=== PATIENT | female | born 1980 | race African-American/Black ===

== ENCOUNTER 2021-07-07 22:23 | Inpatient (IN) | payer OTHER ==
[~2021-07-07] VITALS: Ht 160 cm; Wt 63.5 kg
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
[~2021-07-07 22:23] MED LIST: BICARSIM80 MG PO; IBUPROFEN 800800 M1 PO; IRON325 PO; NORCO 5-325 TA1 EACH PO; SENOKOT-S1 TA1 PO; TYLENOL325 MG PO
[2021-07-07 22:24] VITALS: BP 131/63
[2021-07-07] MEDS ORDERED: NOHOMEMEDICATIONS (22:33)
[2021-07-07 23:25] LABS: ABSOLUTE NEUTROPHILS 6.3 thou/uL (1.4-8.2); BASOPHILS 0.5 % (0.0-2.0); CALCIUM 8.4 mg/dL (8.5-10.1); CREATININE 0.9 mg/dL (0.6-1.0); EOSINOPHILS 0.5 % (0.0-3.0); HEMATOCRIT 36.8 % (37.0-47.0); HEMOGLOBIN 11.8 gm/dL (12.0-15.0); MCH 29.7 pg (26.0-34.0); MCV 92.5 fL (80.0-100.0); MONOCYTES 7.3 % (1.0-8.0); PLATELET COUNT 306 thou/uL (150-400); POLYS 63.7 % (36.0-66.0); POTASSIUM 4.1 mmol/L (3.5-5.1); RBC 3.98 mil/uL (4.20-5.00); RDW 14.4 % (10.5-14.5); WBC 9.9 thou/uL (4.0-11.0)
[2021-07-07 23:32] LABS: ALBUMIN 3.9 g/dL (3.4-5.0); TOTAL BILIRUBIN 0.4 mg/dL (0.2-1.0); TOTAL PROTEIN 7.4 g/dL (6.4-8.2)
[2021-07-08 05:21] VITALS: BP 144/66
[2021-07-08 06:14] VITALS: BP 144/66
[2021-07-08 06:42] VITALS: BP 149/74
[2021-07-08 07:20] VITALS: BP 145/83
--- NOTE | 2021-07-08 07:32 | NUR ---
PT ARRIVED UNIT FROM ER AT 0630.PT V/S STABLE AND PAIN MEDS ADMINISTERED PRN FOR PAIN MANAGEMENT.WILL ENDORSE TO DAY NURSE
--- NOTE | 2021-07-08 09:32 | EKG ---
[address] [address] ELECTROCARDIOGRAM REPORT Name: BELEM BRANCH Room #: 456- ADM IN M.R.#: [id number] Admission: 07/08/21 Attend Phys: Silvino Jo, Discharge: Date of : 80 Report #: [id number] [facility] ED Test Date: 2021-07-07 Test Time: 23:08:03 Pat Name: BELEM BRANCH Department: Room: 456 Gender: F [place] Lead: WARRNE : 1980 Requested By: Ramiro Man Order Number: [id number] MD: Jean Meyer Measurements Intervals [place] Rate: 82 P: 65 CT: 175 QRS: -1 QRSD: 98 T: 53 QT: 392 QTc: 458 Interpretive Statements Sinus rhythm Anteroseptal infarct, age indeterminate Baseline wander in lead(s) V4,V5,V6 No previous ECG available for comparison Electronically Signed On 07-08-2021 9:31:59 CDT by Jean Meyer [email or web address] <ELECTRONICALLY SIGNED> By: Jean Meyer MD, [facility] [address] 07 07 Jean Meyer MD, [facility] /EPI
--- NOTE | 2021-07-08 15:08 | NUR ---
ASSUMED PT CARE AROUND 0715, PT CAME TO FLOOR AROUND 0630. ADM HIST, ADM EDU AND ADM ASSESMENTS COMPLETED. ON REGULAR DIET. A X O X4. ON ROOM AIR. 1 X PERSON ASST. PAIN LEFT RIBS, PARTIALLY CONTROLLED BY PAIN MEDS. NO OPEN WOUNDS. FAMILY IN THE ROOM AROUND NOON. FALL PRECT IN PLACE, CALL LIGHT IN REACH, WILL CALL APPROP. WILL CONTINUE TO MONITOR.
[2021-07-08 20:12] VITALS: BP 132/63
--- NOTE | 2021-07-09 02:19 | NUR ---
PT CARE ASSUMED AT 1900 WITH FAMILY AT BEDSIDE.PT IS A/O X4.PT IS UP WITH X1 ASSIST AND C/O PAIN ON LT RIBS AND ABD ESPECIALLY WITH MOVEMENT.PAIN MANAGED WITH MORPHINE AND NORCO WITH PARTIAL RELIEF.FALL PRECAUTION IN PLACE.NICOTINE PATCH ORDERED AND ADMINISTERED.PT ON REGULAR DIET.WILL CONTINUE TO MONITOR PER POC
[2021-07-09] MEDS ORDERED: HYDROCODON-ACE1 EAC7 PO (14:47)
[2021-07-09] MEDS ORDERED: MIRALAX119 GM PO (14:47)
[2021-07-09] MEDS ORDERED: COLACE100 MG PO (14:48)
[2021-07-09 15:04] VITALS: BP 132/63
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
--- NOTE | 2021-07-09 15:46 | NUR ---
Pt A/O x 4, pain in ribs and abdomen mostly controlled by PO pain medication. Discharge teaching Re: activity and medications given. Rx for pain medication sent to preferred pharmacyt, activity restriction note/work note given to patient. PIV removed, friend at bedside helping her dress. Will wheel downstairs when finished.
[2021-07-09 16:54] VITALS: BP 132/63
== END 2021-07-09 16:30 | disposition home or self-care (01) | DRG 185 ==
LOC: ER 22:23 → EROBS 07-08 02:16 → 4W 07-08 06:41
PROVIDERS: Emergency Medicine; ADMIT Surgery; ATTEND Surgery
DX: S22.42XA Multiple fractures of ribs, left side, initial encounter for closed fracture (principal); F12.90 Cannabis use, unspecified, uncomplicated; F17.210 Nicotine dependence, cigarettes, uncomplicated; F14.90 Cocaine use, unspecified, uncomplicated; S39.91XA Unspecified injury of abdomen, initial encounter; Z86.16 Personal history of COVID-19; V89.2XXA Person injured in unspecified motor-vehicle accident, traffic, initial encounter; Y93.89 Activity, other specified; Y92.89 Other specified places as the place of occurrence of the external cause; Y99.8 Other external cause status; Z20.822 Contact with and (suspected) exposure to COVID-19
CPT/HCPCS: 10047

== ENCOUNTER 2021-07-12 19:08 | Inpatient (IN) | payer OTHER ==
[~2021-07-12] VITALS: Ht 160 cm; Wt 61.7 kg
[~2021-07-12 19:08] MED LIST changes: +COLACE100 MG PO; +HYDROCODON-ACE1 EAC7 PO; +MIRALAX119 GM PO; +NOHOMEMEDICATIONS
[2021-07-12 19:27] VITALS: BP 122/60
[2021-07-12 21:04] LABS: URINE BILIRUBIN 1+ (Negative); URINE BLOOD 2+ (Negative); URINE CLARITY CLEAR; URINE COLOR YELLOW; URINE GLUCOSE-RANDOM* NEGATIVE (Negative); URINE KETONES TRACE (Negative); URINE LEUKOCYTES-REFLEX TRACE (Negative); URINE NITRITE-REFLEX NEGATIVE (Negative); URINE PROTEIN (DIPSTICK) TRACE (Negative)
[2021-07-12 21:05] LABS: ICTOTEST (BILI CONFIRMATORY) Negative (Negative)
[2021-07-12 21:16] LABS: HEMATOCRIT 35.3 % (37.0-47.0); HEMOGLOBIN 11.6 gm/dL (12.0-15.0); MCH 30.3 pg (26.0-34.0); MCHC 32.9 g/dL (28.0-37.0); PLATELET COUNT 262 thou/uL (150-400); RBC 3.84 mil/uL (4.20-5.00); RDW 14.7 % (10.5-14.5)
[2021-07-12 21:22] LABS: CREATININE 0.9 mg/dL (0.6-1.0); POTASSIUM 3.8 mmol/L (3.5-5.1)
[2021-07-12 21:25] LABS: BACTERIA-REFLEX 1-9 Few /HPF (None Seen); CASTS None Seen /LPF (None Seen); CRYSTALS None Seen /LPF (None Seen); MUCUS 4-6 Moderate strn/LPF (None Seen); SQUAMOUS 4-10 Moderate /LPF (0-3); URINE RBC 3-10 Few /HPF (NONE SEEN); URINE WBC-REFLEX 0-5 Rare /HPF (0-5)
[2021-07-12 21:28] LABS: ALBUMIN 3.5 g/dL (3.4-5.0); TOTAL BILIRUBIN 0.7 mg/dL (0.2-1.0); TOTAL PROTEIN 7.6 g/dL (6.4-8.2)
[2021-07-12 22:27] LABS: ANISOCYTOSIS 1+; PLATELET ESTIMATE NORMAL; POIKILOCYTOSIS 1+
[2021-07-13 02:37] VITALS: BP 180/80
[2021-07-13 02:41] VITALS: BP 180/80
[2021-07-13 03:13] VITALS: BP 142/105
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
--- NOTE | 2021-07-13 08:08 | NUR ---
I CONCUR WITH THE ASSESSMENT AND NOTE OF HAWA SINCLAIR
[2021-07-13 08:38] VITALS: BP 150/94
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
[2021-07-13 14:51] LABS: MCH 30.1 pg (26.0-34.0); MCHC 32.3 g/dL (28.0-37.0); MCV 93.2 fL (80.0-100.0); RBC 3.65 mil/uL (4.20-5.00); RDW 14.6 % (10.5-14.5); WBC 21.5 thou/uL (4.0-11.0)
[2021-07-13 15:03] LABS: CALCIUM 8.7 mg/dL (8.5-10.1); CREATININE 0.7 mg/dL (0.6-1.0); POTASSIUM 3.7 mmol/L (3.5-5.1)
--- NOTE | 2021-07-13 15:36 | NUR ---
A/O X 4. AD KARI. ROOM AIR. LEFT FOREARM PIV WITH NS @ 126 MLS/HR. LEFT FOREARM NICOTINE PATCH PLACED. SHE IS REG DIET NOW. 2 BM. TOLERATING IV ABTS WELL, NO ADVERSE EFFECTS NOTED. ABD AND LEFT RIB PAIN 8/10 MORPINE GIVEN FOR PAIN.
[2021-07-13 16:07] VITALS: BP 149/95
--- NOTE | 2021-07-14 02:28 | NUR ---
ASSUMED CARE OF PT AT 1930. REPORT RECIEVED. PETER ASSESSMENT COMPLETE. PT C/O RUQ TO BOTTOM OF XIPOID PROCESS PAIN, TENDERNESS UPON PALPATION. PAIN MEDS GIVEN ORDERED C OTHER SCHEDULED MEDS. IV ANTIBITOICS AND FLUIDS INFUSING ORDERED. L AC PIV CDI, PATENT. PT UP AD KARI TO BATHROOM. ICE WATER REFILLESD. HOURLY ROUNDING ONGOING. ALL NEEDS MET. CALL LIGHT IN REACH
[2021-07-14 06:33] LABS: HEMATOCRIT 32.1 % (37.0-47.0); HEMOGLOBIN 10.6 gm/dL (12.0-15.0); MCH 30.5 pg (26.0-34.0); MCV 92.5 fL (80.0-100.0); RBC 3.47 mil/uL (4.20-5.00); RDW 14.5 % (10.5-14.5); WBC 13.9 thou/uL (4.0-11.0)
[2021-07-14 07:02] LABS: CALCIUM 8.8 mg/dL (8.5-10.1); CREATININE 0.7 mg/dL (0.6-1.0); POTASSIUM 3.4 mmol/L (3.5-5.1)
[2021-07-14 07:24] VITALS: BP 178/102
[2021-07-14 15:11] VITALS: BP 172/87
--- NOTE | 2021-07-14 18:47 | NUR ---
ASSUMED PT CARE AROUND 15. PT A X O 4, RA, UP AD KARI. IV LF AC/ NS RUNNING, TAKES MEDS WHOLE.PAIN ABD PARTIALLY CONTROLLED BY PAIN MEDS. FALL PRECT IN PLACE, CALL LIGHT IN REACH. WILL CALL APPROPRIATELY. HOURLY ROUNDING DONE.
[2021-07-14 19:40] VITALS: BP 174/97
[2021-07-15 00:25] VITALS: BP 173/79
[2021-07-15 04:21] VITALS: BP 162/71
[2021-07-15 05:48] LABS: HEMATOCRIT 33.3 % (37.0-47.0); HEMOGLOBIN 11.1 gm/dL (12.0-15.0); MCH 30.4 pg (26.0-34.0); MCHC 33.3 g/dL (28.0-37.0); MCV 91.4 fL (80.0-100.0); RBC 3.64 mil/uL (4.20-5.00); RDW 14.1 % (10.5-14.5); WBC 10.2 thou/uL (4.0-11.0)
--- NOTE | 2021-07-15 05:49 | NUR ---
Pt. c/o chronic abdominal pain and has been given iv pain meds (see emar) with some relief noted. She has had a elevated bp most of the shift. Andreea AGUILAR has been informed and new meds ordered (see cpoe). Hydralazine given (see emar) with no relief of reducing bp. Po norvasc given and has been gradually reducing her bp (see vs). Pt. with small amount of emesis of clear fluids during the night. Assisted up to the bathroom with standby assistance and she has been voiding without difficulty. Pt. currently resting quietly in the bed with no complaints.
[2021-07-15 07:19] VITALS: BP 172/98
[2021-07-15] MEDS ORDERED: FLAGYL500 M1 PO (09:25)
[2021-07-15] MEDS ORDERED: FELODIPINE ER10 MG PO (09:25)
[2021-07-15] MEDS ORDERED: AUGMENTIN 875-1 EACH PO (09:27)
[2021-07-15 14:03] VITALS: BP 172/98
== END 2021-07-15 16:01 | disposition home or self-care (01) | DRG 872 ==
LOC: ER 19:08 → EROBS 23:54 → 4S 07-13 02:57
PROVIDERS: Hospitalist; Nurse Practitioner Family; Physician Assistant; ADMIT Hospitalist; ATTEND Hospitalist
DX: A41.9 Sepsis, unspecified organism (principal); N73.9 Female pelvic inflammatory disease, unspecified; F17.210 Nicotine dependence, cigarettes, uncomplicated; F12.90 Cannabis use, unspecified, uncomplicated; A59.9 Trichomoniasis, unspecified; K59.00 Constipation, unspecified; D25.9 Leiomyoma of uterus, unspecified; N83.01 Follicular cyst of right ovary; Z20.822 Contact with and (suspected) exposure to COVID-19; Z86.16 Personal history of COVID-19; Z90.721 Acquired absence of ovaries, unilateral; Z79.899 Other long term (current) drug therapy; Z87.81 Personal history of (healed) traumatic fracture
CPT/HCPCS: 10195